=== PATIENT | female | born 1995 | race African-American/Black ===

== ENCOUNTER 2017-11-23 23:42 | Observation (INO) ==
--- NOTE | 2017-11-24 00:34 | Emergency Department Note ---
Disposition Clinical Impression: Suicide attempt by drug ingestion Qualifiers: Encounter type: initial encounter Qualified Code(s): T50.902A - Poisoning by unspecified drugs, medicaments and biological substances, intentional self-harm , initial encounter Disposition: Admitted As Inpatient Condition: Good Time of Disposition: 05:04 Psych HPI - General Chief Complaint: ED Psychiatric Symptoms Stated Complaint: SI/OD Time Seen by Provider: 11/24/17 00:32 Source: patient Nursing Notes Reviewed: Yes Vital Signs Reviewed: Yes - History of Present Illness HPI Narrative: 22 old female presents for ingestion with intent of suicide. Just approximately 4 hours prior to arrival. She took [facility] Head and Cold. 12 tablets. 250 acetaminphen, 250 aspirin, 65 caffeine per rapid release capsule. Patient is bipolar and has been noncompliant with her medications. Patient's and child are bedside. Review systems unobtainable secondary to patient's emotional condition. - Related Data Previous Rx's Medication Instructions Recorded Cephalexin [Keflex] 500 mg PO BID #14 capsule 08/02/17 Phenazopyridine HCl [Pyridium] 200 mg PO TIDAC #9 tab 08/02/17 Allergies Allergy/AdvReac Type Severity Reaction Status Date / Time No Known Allergies Allergy Verified 08/02/17 19:48 All systems ED: reviewed and negative except as stated. Review of Systems: As Per HPI Past Medical History - Past Medical History Medical history: Reports: no medical history Psychiatric history: Reports: anxiety, bipolar, depression - Social History Smoking Status: Never smoker Smokeless Tobacco Status: No Alcohol use: Reports: none Drug use: Reports: none Physical Exam Vital Signs Reviewed General: Patient is alert, oriented, and in acute distress-she is yelling, breathing rapidly, stating she cannot breathe, stating she is having a heart attack. She repeats this is not directly answer questions. Head: atraumatic, normocephalic Eye: normal appearance, no scleral icterus, no conjunctival injection ENT: mucous membranes moist, normal external ear exam Neck: normal inspection, trachea midline, full ROM Chest: normal inspection, symmetric chest rise Respiratory: Good respiratory effort. Bilateral breath sounds are clear without wheezing, crackles, or rhonchi. Cardiovascular: Tachycardic rate and regular rhythm. No clicks, rubs, gallops, or murmors. Normal heart sounds. Abdomen: Bowel sounds present normoactive x-4 quadrants. Abdomen is soft, nondistended, and nontender. No guarding or rebound. Musculoskeletal: Spontaneously moving all extremities. Skin: warm, dry, intact. Neuro: Alert and oriented x4. Sensation light touch intact. Psych: Patient's affect is appropriate for situation. - General Limitations: no limitations General appearance: alert, in no apparent distress Course Course Narrative: EKG dated 11/24/2017 at 00:23 interpreted as sinus tachycardia with rate of 1: 15. MI 170. QTC 460. Normal axis. Nonspecific ST-T changes. No previous EKG for comparison. Patient is medically cleared. Her salicylate level is subtherapeutic and declining. She has calmed substantially with 2 mg IV Ativan. 04:45 Discussed the patient with [facility] nurse. Psychiatrist requests hospitals admission with psychiatric consult. When questioned why, nurse states his psychiatrist wishes further observation given the patient's overdose. Nurse and I discussed the patient's salicylate levels which she indicated was the psychiatrist primary concern. I reiterated that we in the emergency department have medically cleared the patient. We reestablished multiple salicylate levels are subtherapeutic and are trending down. She reiterates at the psychiatrist does not feel comfortable with admission to the psychiatric unit. I requested to speak directly with the psychiatrist. 04:50 [facility] nurse callbacks. She called the psychiatrist back. He does not wish to speak with me or my attending on a physician to physician basis. He stands by his initial recommendation that the patient be admitted to medical floor for continued observation. He did not further clarify or elucidate his rationale for this to the nurse. He will not accept the patient to the psychiatric floor at this time. I discussed the patient with the admitting hospitalist, Dr. Wells. I discussed the patient's presenting condition, her ED course, her subtheraputic and declining salicylate level as well as my conversations with [facility]. He accepts the patient. Vital Signs Temperature 98.1 F 11/23/17 23:46 Pulse Rate 110 11/23/17 23:46 Respiratory Rate 18 11/23/17 23:46 Blood Pressure 138/92 11/23/17 23:46 O2 Sat by Pulse Oximetry 98 11/23/17 23:46 Temperature 98.1 F 11/23/17 23:46 Pulse Rate 73 11/24/17 03:59 Respiratory Rate 15 11/24/17 03:59 Blood Pressure 120/74 11/24/17 03:59 O2 Sat by Pulse Oximetry 100 11/24/17 03:59 Oxygen Delivery Oxygen Delivery Room Air Psych - Lab Data Result diagrams: 11/24/17 00:34 11/24/17 00:34 Lab Results 11/24/17 11/24/17 11/24/17 Range/Units 00:31 00:34 00:34 WBC 9.4 (4.3-11.1) K/mcL RBC 5.14 H (3.82-4.97) M/mcL Hgb 13.4 (11.5-15.4) g/dL Hct 41.2 (35.3-44.9) % MCV 80.2 L (83.0-100.0) fL MCH 26.1 L (28.0-33.3) pg MCHC 32.5 (31.6-35.5) g/dL RDW 13.1 (11.5-14.5) % Plt Count 302 (140-400) K/mcL MPV 10.7 (9.4-12.4) fL Immature Gran % 0.2 (0-4) % Seg Neutrophils % 74.8 % Lymphocytes % 19.6 % Monocytes % 5.1 % Eosinophils % 0.1 % Basophils % 0.2 % Neutrophils # 7.0 (1.6-8.9) K/mcL Lymphocytes # 1.8 (0.6-4.6) K/mcL Monocytes # 0.5 (0.0-1.3) K/mcL Eosinophils # 0.0 (0.0-0.6) K/mcL Basophils # 0.0 (0.0-0.2) K/mcL Sodium 137 (136-145) mEq/L Potassium 3.1 L (3.5-5.1) mEq/L Chloride 104 (98-107) mEq/L Carbon Dioxide 17 L (23-29) mEq/L BUN 8 (6-20) mg/dL Creatinine 0.76 (0.60-1.20) mg/dL Est GFR ( Amer) > 60 (> 60) Est GFR (Non-Af Amer) > 60 (> 60) BUN/Creatinine Ratio 11 (6-26) Glucose 138 H (70-105) mg/dL Calculated Osmolality 285 (280-300) Calcium 9.9 (8.6-10.3) mg/dL Urine Color (Yellow) Urine Clarity (Clear) Urine pH (5.0-8.0) pH Units Ur Specific [place] (1.010-1.025) Urine Protein (Neg-Trace) mg/dL Urine Glucose (UA) (Normal) mg/dL Urine Ketones (Negative) mg/dL Urine Blood (Negative) Urine Nitrite (Negative) Urine Bilirubin (Negative) Urine Urobilinogen (Normal) mg/dL Ur Leukocyte Esterase (Negative) Urine Microscopic RBC (0-3) per hpf Urine Microscopic WBC (0-3) per hpf Ur Squamous Epith Cells (None-Few) per lpf Urine Bacteria (None-Few) per hpf Hyaline Casts (None-Few) per lpf Urine Mucus (Few) Urine Test (Negative) Salicylates 14.6 L 14.8 L (15.0-30.0) mg/dL Urine Opiates Screen (Opwmly=152) ng/mL Acetaminophen 18 (10-20) mcg/mL Ur Barbiturates Screen (Sacdmj=349) ng/mL Ur Phencyclidine Scrn (Cutoff=25) ng/mL Ur Amphetamines Screen (Kbqrrz=6545) ng/mL U Benzodiazepines Scrn (Datwft=109) ng/mL Urine Cocaine Screen (Cutoff= 300) ng/mL U Marijuana (THC) Screen (Cutoff = 50) ng/mL Ur Drug Screen Interp Ethyl Alcohol < 10 (Less than 10) mg/dL 11/24/17 11/24/17 11/24/17 Range/Units 01:07 01:07 01:07 WBC (4.3-11.1) K/mcL RBC (3.82-4.97) M/mcL Hgb (11.5-15.4) g/dL Hct (35.3-44.9) % MCV (83.0-100.0) fL MCH (28.0-33.3) pg MCHC (31.6-35.5) g/dL RDW (11.5-14.5) % Plt Count (140-400) K/mcL MPV (9.4-12.4) fL Immature Gran % (0-4) % Seg Neutrophils % % Lymphocytes % % Monocytes % % Eosinophils % % Basophils % % Neutrophils # (1.6-8.9) K/mcL Lymphocytes # (0.6-4.6) K/mcL Monocytes # (0.0-1.3) K/mcL Eosinophils # (0.0-0.6) K/mcL Basophils # (0.0-0.2) K/mcL Sodium (136-145) mEq/L Potassium (3.5-5.1) mEq/L Chloride (98-107) mEq/L Carbon Dioxide (23-29) mEq/L BUN (6-20) mg/dL Creatinine (0.60-1.20) mg/dL Est GFR ( Amer) (> 60) Est GFR (Non-Af Amer) (> 60) BUN/Creatinine Ratio (6-26) Glucose (70-105) mg/dL Calculated Osmolality (280-300) Calcium (8.6-10.3) mg/dL Urine Color Yellow (Yellow) Urine Clarity Clear (Clear) Urine pH 6.0 (5.0-8.0) pH Units Ur Specific [place] 1.025 (1.010-1.025) Urine Protein 30 H (Neg-Trace) mg/dL Urine Glucose (UA) Normal (Normal) mg/dL Urine Ketones 40 H (Negative) mg/dL Urine Blood Negative (Negative) Urine Nitrite Negative (Negative) Urine Bilirubin Negative (Negative) Urine Urobilinogen Normal (Normal) mg/dL Ur Leukocyte Esterase Negative (Negative) Urine Microscopic RBC 0-3 (0-3) per hpf Urine Microscopic WBC 0-3 (0-3) per hpf Ur Squamous Epith Cells Few (None-Few) per lpf Urine Bacteria Few (None-Few) per hpf Hyaline Casts None Seen (None-Few) per lpf Urine Mucus Few (Few) Urine Test Negative (Negative) Salicylates (15.0-30.0) mg/dL Urine Opiates Screen Negative (Trrnuv=287) ng/mL Acetaminophen (10-20) mcg/mL Ur Barbiturates Screen Negative (Ygjrkf=244) ng/mL Ur Phencyclidine Scrn Negative (Cutoff=25) ng/mL Ur Amphetamines Screen Negative (Ogahjh=7280) ng/mL U Benzodiazepines Scrn Negative (Qnzlys=947) ng/mL Urine Cocaine Screen Negative (Cutoff= 300) ng/mL U Marijuana (THC) Screen Negative (Cutoff = 50) ng/mL Ur Drug Screen Interp See Below Ethyl Alcohol (Less than 10) mg/dL 11/24/17 Range/Units 03:18 WBC (4.3-11.1) K/mcL RBC (3.82-4.97) M/mcL Hgb (11.5-15.4) g/dL Hct (35.3-44.9) % MCV (83.0-100.0) fL MCH (28.0-33.3) pg MCHC (31.6-35.5) g/dL RDW (11.5-14.5) % Plt Count (140-400) K/mcL MPV (9.4-12.4) fL Immature Gran % (0-4) % Seg Neutrophils % % Lymphocytes % % Monocytes % % Eosinophils % % Basophils % % Neutrophils # (1.6-8.9) K/mcL Lymphocytes # (0.6-4.6) K/mcL Monocytes # (0.0-1.3) K/mcL Eosinophils # (0.0-0.6) K/mcL Basophils # (0.0-0.2) K/mcL Sodium (136-145) mEq/L Potassium (3.5-5.1) mEq/L Chloride (98-107) mEq/L Carbon Dioxide (23-29) mEq/L BUN (6-20) mg/dL Creatinine (0.60-1.20) mg/dL Est GFR ( Amer) (> 60) Est GFR (Non-Af Amer) (> 60) BUN/Creatinine Ratio (6-26) Glucose (70-105) mg/dL Calculated Osmolality (280-300) Calcium (8.6-10.3) mg/dL Urine Color (Yellow) Urine Clarity (Clear) Urine pH (5.0-8.0) pH Units Ur Specific [place] (1.010-1.025) Urine Protein (Neg-Trace) mg/dL Urine Glucose (UA) (Normal) mg/dL Urine Ketones (Negative) mg/dL Urine Blood (Negative) Urine Nitrite (Negative) Urine Bilirubin (Negative) Urine Urobilinogen (Normal) mg/dL Ur Leukocyte Esterase (Negative) Urine Microscopic RBC (0-3) per hpf Urine Microscopic WBC (0-3) per hpf Ur Squamous Epith Cells (None-Few) per lpf Urine Bacteria (None-Few) per hpf Hyaline Casts (None-Few) per lpf Urine Mucus (Few) Urine Test (Negative) Salicylates 12.2 L (15.0-30.0) mg/dL Urine Opiates Screen (Nwvnss=922) ng/mL Acetaminophen (10-20) mcg/mL Ur Barbiturates Screen (Wlnakl=789) ng/mL Ur Phencyclidine Scrn (Cutoff=25) ng/mL Ur Amphetamines Screen (Tcblae=2347) ng/mL U Benzodiazepines Scrn (Mvxljq=411) ng/mL Urine Cocaine Screen (Cutoff= 300) ng/mL U Marijuana (THC) Screen (Cutoff = 50) ng/mL Ur Drug Screen Interp Ethyl Alcohol (Less than 10) mg/dL Psychiatric Medical Clearance - Medical Clearance Checklist Medical History: No Social History Section defined Current Vitals: Last Vital Signs Temp 98.1 F 11/23/17 23:46 Pulse 73 11/24/17 03:59 Resp 15 11/24/17 03:59 BP 120/74 11/24/17 03:59 Pulse Ox 100 11/24/17 03:59 Psychiatric Lab Panel: Drug Levels and Toxicity 11/24/17 11/24/17 00:34 01:07 Urine Opiates Screen Negative Acetaminophen 18 Ur Barbiturates Screen Negative Ur Phencyclidine Scrn Negative Ur Amphetamines Screen Negative U Benzodiazepines Scrn Negative Urine Cocaine Screen Negative U Marijuana (THC) Screen Negative Ethyl Alcohol < 10 Abnormal Labs: Abnormal lab results RBC 5.14 M/mcL (3.82-4.97) H 11/24/17 00:34 MCV 80.2 fL (83.0-100.0) L 11/24/17 00:34 MCH 26.1 pg (28.0-33.3) L 11/24/17 00:34 Potassium 3.1 mEq/L (3.5-5.1) L 11/24/17 00:34 Carbon Dioxide 17 mEq/L (23-29) L 11/24/17 00:34 Glucose 138 mg/dL (70-105) H 11/24/17 00:34 Urine Protein 30 mg/dL (Neg-Trace) H 11/24/17 01:07 Urine Ketones 40 mg/dL (Negative) H 11/24/17 01:07 Salicylates 12.2 mg/dL (15.0-30.0) L 11/24/17 03:18
[2017-11-24 00:55] LABS: Basophils % 0.2 %; Eosinophils % 0.1 %; Hematocrit 41.2 % (35.3-44.9); Hemoglobin 13.4 g/dL (11.5-15.4); Immature Granulocytes % 0.2 % (0-4); Lymphocytes # 1.8 K/mcL (0.6-4.6); Lymphocytes % 19.6 %; Mean Corpuscular HGB Conc 32.5 g/dL (31.6-35.5); Mean Corpuscular Hemoglobin 26.1 pg (28.0-33.3); Mean Corpuscular Volume 80.2 fL (83.0-100.0); Mean Platelet Volume 10.7 fL (9.4-12.4); Monocytes # 0.5 K/mcL (0.0-1.3); Monocytes % 5.1 %; Platelet Count 302 K/mcL (140-400); Red Blood Count 5.14 M/mcL (3.82-4.97); Red Cell Distribution Width 13.1 % (11.5-14.5); Segmented Neutrophils % 74.8 %
[2017-11-24] MEDS ORDERED: *HR* LORazepam 2 MG/ML VIAL IVP ONE (01:07)
[2017-11-24 01:17] LABS: Acetaminophen 18 mcg/mL (10-20); BUN/Creatinine Ratio 11 (6-26); Blood Urea Nitrogen 8 mg/dL (6-20); Calcium 9.9 mg/dL (8.6-10.3); Carbon Dioxide 17 mEq/L (23-29); Chloride 104 mEq/L (98-107); Ethanol < 10 mg/dL (Less than 10); Glucose 138 mg/dL (70-105); Osmolality,Calculated 285 (280-300); Potassium 3.1 mEq/L (3.5-5.1); Salicylate 14.8 mg/dL (15.0-30.0); Sodium 137 mEq/L (136-145); eGFR For Non-African Americans > 60 (> 60)
[2017-11-24 01:27] LABS: Bilirubin,Urine Negative (Negative); Blood,Urine Negative (Negative); Clarity,Urine Clear (Clear); Color,Urine Yellow (Yellow); Glucose,Urine (UA) Normal (Normal); Ketones,Urine 40 mg/dL (Negative); Leukocyte Esterase,Urine Negative (Negative); Nitrite,Urine Negative (Negative); Protein,Urine 30 mg/dL (Neg-Trace); Specific Gravity,Urine 1.025 (1.010-1.025); Urobilinogen,Urine Normal (Normal)
[2017-11-24 01:31] LABS: Amphetamine Screen,Urine Negative ng/mL (Cutoff=1000); Barbiturate Screen,Urine Negative ng/mL (Cutoff=200); Benzodiazepines Screen,Urine Negative ng/mL (Cutoff=200); Cannabinoid Screen,Urine Negative ng/mL (Cutoff = 50); Cocaine Screen,Urine Negative ng/mL (Cutoff= 300); Opiate Screen,Urine Negative ng/mL (Cutoff=300); Phencyclidine Screen,Urine Negative ng/mL (Cutoff=25)
[2017-11-24 01:43] LABS: Bacteria,Urine Few per hpf (None-Few); Hyaline Casts,Urine None Seen per lpf (None-Few); Mucus,Urine Few (Few); RBC,Urine 0-3 per hpf (0-3); Squamous Epithelial Cell,Urine Few per lpf (None-Few); WBC,Urine 0-3 per hpf (0-3)
[2017-11-24] MEDS ORDERED: Ondansetron 4 MG/2 ML VIAL IVP ONE (02:52)
[2017-11-24] MEDS ORDERED: 0.9 % Sodium Chloride 1,000 ML IVC ONE (02:52)
[2017-11-24] MEDS ORDERED: OLANZapine 5 MG TAB.RAPDIS PO STA ×2 (05:01→05:02)
[2017-11-24] MEDS ORDERED: OLANZapine 10 MG VIAL IM ONE (05:11)
--- NOTE | 2017-11-24 05:24 | Emergency Department Note ---
Disposition Clinical Impression: Suicide attempt by drug ingestion Qualifiers: Encounter type: initial encounter Qualified Code(s): T50.902A - Poisoning by unspecified drugs, medicaments and biological substances, intentional self-harm , initial encounter Disposition: Admitted As Inpatient Condition: Good General Adult HPI - General Chief complaint: ED Psychiatric Symptoms Stated complaint: SI/OD Time Seen by Provider: 11/24/17 00:32 Source: patient Limitations: no limitations Nursing Notes Reviewed: Yes Vital Signs Reviewed: Yes - History of Present Illness Pain Scale: 10 - Related Data Previous Rx's Medication Instructions Recorded Cephalexin [Keflex] 500 mg PO BID #14 capsule 08/02/17 Phenazopyridine HCl [Pyridium] 200 mg PO TIDAC #9 tab 08/02/17 Allergies Allergy/AdvReac Type Severity Reaction Status Date / Time No Known Allergies Allergy Verified 08/02/17 19:48 Past Medical History - Past Medical History Medical history: Reports: no medical history Psychiatric history: Reports: anxiety, bipolar, depression - Social History Smoking Status: Never smoker Smokeless Tobacco Status: No Alcohol use: Reports: none Drug use: Reports: none Physical Exam - General Limitations: no limitations General appearance: alert, in no apparent distress Course Vital Signs Temperature 98.1 F 11/23/17 23:46 Pulse Rate 110 11/23/17 23:46 Respiratory Rate 18 11/23/17 23:46 Blood Pressure 138/92 11/23/17 23:46 O2 Sat by Pulse Oximetry 98 11/23/17 23:46 Temperature 98.1 F 11/23/17 23:46 Pulse Rate 73 11/24/17 03:59 Respiratory Rate 15 11/24/17 03:59 Blood Pressure 120/74 11/24/17 03:59 O2 Sat by Pulse Oximetry 100 11/24/17 03:59 Oxygen Delivery Oxygen Delivery Room Air Medical Decision Making - Lab Data Result diagrams: 11/24/17 00:34 11/24/17 00:34 Lab Results 11/24/17 11/24/17 11/24/17 Range/Units 00:31 00:34 00:34 WBC 9.4 (4.3-11.1) K/mcL RBC 5.14 H (3.82-4.97) M/mcL Hgb 13.4 (11.5-15.4) g/dL Hct 41.2 (35.3-44.9) % MCV 80.2 L (83.0-100.0) fL MCH 26.1 L (28.0-33.3) pg MCHC 32.5 (31.6-35.5) g/dL RDW 13.1 (11.5-14.5) % Plt Count 302 (140-400) K/mcL MPV 10.7 (9.4-12.4) fL Immature Gran % 0.2 (0-4) % Seg Neutrophils % 74.8 % Lymphocytes % 19.6 % Monocytes % 5.1 % Eosinophils % 0.1 % Basophils % 0.2 % Neutrophils # 7.0 (1.6-8.9) K/mcL Lymphocytes # 1.8 (0.6-4.6) K/mcL Monocytes # 0.5 (0.0-1.3) K/mcL Eosinophils # 0.0 (0.0-0.6) K/mcL Basophils # 0.0 (0.0-0.2) K/mcL Sodium 137 (136-145) mEq/L Potassium 3.1 L (3.5-5.1) mEq/L Chloride 104 (98-107) mEq/L Carbon Dioxide 17 L (23-29) mEq/L BUN 8 (6-20) mg/dL Creatinine 0.76 (0.60-1.20) mg/dL Est GFR ( Amer) > 60 (> 60) Est GFR (Non-Af Amer) > 60 (> 60) BUN/Creatinine Ratio 11 (6-26) Glucose 138 H (70-105) mg/dL Calculated Osmolality 285 (280-300) Calcium 9.9 (8.6-10.3) mg/dL Urine Color (Yellow) Urine Clarity (Clear) Urine pH (5.0-8.0) pH Units Ur Specific [place] (1.010-1.025) Urine Protein (Neg-Trace) mg/dL Urine Glucose (UA) (Normal) mg/dL Urine Ketones (Negative) mg/dL Urine Blood (Negative) Urine Nitrite (Negative) Urine Bilirubin (Negative) Urine Urobilinogen (Normal) mg/dL Ur Leukocyte Esterase (Negative) Urine Microscopic RBC (0-3) per hpf Urine Microscopic WBC (0-3) per hpf Ur Squamous Epith Cells (None-Few) per lpf Urine Bacteria (None-Few) per hpf Hyaline Casts (None-Few) per lpf Urine Mucus (Few) Urine Test (Negative) Salicylates 14.6 L 14.8 L (15.0-30.0) mg/dL Urine Opiates Screen (Ghfhwu=418) ng/mL Acetaminophen 18 (10-20) mcg/mL Ur Barbiturates Screen (Gozorh=851) ng/mL Ur Phencyclidine Scrn (Cutoff=25) ng/mL Ur Amphetamines Screen (Idzfjk=2475) ng/mL U Benzodiazepines Scrn (Whjtyt=998) ng/mL Urine Cocaine Screen (Cutoff= 300) ng/mL U Marijuana (THC) Screen (Cutoff = 50) ng/mL Ur Drug Screen Interp Ethyl Alcohol < 10 (Less than 10) mg/dL 11/24/17 11/24/17 11/24/17 Range/Units 01:07 01:07 01:07 WBC (4.3-11.1) K/mcL RBC (3.82-4.97) M/mcL Hgb (11.5-15.4) g/dL Hct (35.3-44.9) % MCV (83.0-100.0) fL MCH (28.0-33.3) pg MCHC (31.6-35.5) g/dL RDW (11.5-14.5) % Plt Count (140-400) K/mcL MPV (9.4-12.4) fL Immature Gran % (0-4) % Seg Neutrophils % % Lymphocytes % % Monocytes % % Eosinophils % % Basophils % % Neutrophils # (1.6-8.9) K/mcL Lymphocytes # (0.6-4.6) K/mcL Monocytes # (0.0-1.3) K/mcL Eosinophils # (0.0-0.6) K/mcL Basophils # (0.0-0.2) K/mcL Sodium (136-145) mEq/L Potassium (3.5-5.1) mEq/L Chloride (98-107) mEq/L Carbon Dioxide (23-29) mEq/L BUN (6-20) mg/dL Creatinine (0.60-1.20) mg/dL Est GFR ( Amer) (> 60) Est GFR (Non-Af Amer) (> 60) BUN/Creatinine Ratio (6-26) Glucose (70-105) mg/dL Calculated Osmolality (280-300) Calcium (8.6-10.3) mg/dL Urine Color Yellow (Yellow) Urine Clarity Clear (Clear) Urine pH 6.0 (5.0-8.0) pH Units Ur Specific [place] 1.025 (1.010-1.025) Urine Protein 30 H (Neg-Trace) mg/dL Urine Glucose (UA) Normal (Normal) mg/dL Urine Ketones 40 H (Negative) mg/dL Urine Blood Negative (Negative) Urine Nitrite Negative (Negative) Urine Bilirubin Negative (Negative) Urine Urobilinogen Normal (Normal) mg/dL Ur Leukocyte Esterase Negative (Negative) Urine Microscopic RBC 0-3 (0-3) per hpf Urine Microscopic WBC 0-3 (0-3) per hpf Ur Squamous Epith Cells Few (None-Few) per lpf Urine Bacteria Few (None-Few) per hpf Hyaline Casts None Seen (None-Few) per lpf Urine Mucus Few (Few) Urine Test Negative (Negative) Salicylates (15.0-30.0) mg/dL Urine Opiates Screen Negative (Sovutk=780) ng/mL Acetaminophen (10-20) mcg/mL Ur Barbiturates Screen Negative (Bdcxwz=349) ng/mL Ur Phencyclidine Scrn Negative (Cutoff=25) ng/mL Ur Amphetamines Screen Negative (Eiasbu=6057) ng/mL U Benzodiazepines Scrn Negative (Qwtzhe=803) ng/mL Urine Cocaine Screen Negative (Cutoff= 300) ng/mL U Marijuana (THC) Screen Negative (Cutoff = 50) ng/mL Ur Drug Screen Interp See Below Ethyl Alcohol (Less than 10) mg/dL 11/24/17 Range/Units 03:18 WBC (4.3-11.1) K/mcL RBC (3.82-4.97) M/mcL Hgb (11.5-15.4) g/dL Hct (35.3-44.9) % MCV (83.0-100.0) fL MCH (28.0-33.3) pg MCHC (31.6-35.5) g/dL RDW (11.5-14.5) % Plt Count (140-400) K/mcL MPV (9.4-12.4) fL Immature Gran % (0-4) % Seg Neutrophils % % Lymphocytes % % Monocytes % % Eosinophils % % Basophils % % Neutrophils # (1.6-8.9) K/mcL Lymphocytes # (0.6-4.6) K/mcL Monocytes # (0.0-1.3) K/mcL Eosinophils # (0.0-0.6) K/mcL Basophils # (0.0-0.2) K/mcL Sodium (136-145) mEq/L Potassium (3.5-5.1) mEq/L Chloride (98-107) mEq/L Carbon Dioxide (23-29) mEq/L BUN (6-20) mg/dL Creatinine (0.60-1.20) mg/dL Est GFR ( Amer) (> 60) Est GFR (Non-Af Amer) (> 60) BUN/Creatinine Ratio (6-26) Glucose (70-105) mg/dL Calculated Osmolality (280-300) Calcium (8.6-10.3) mg/dL Urine Color (Yellow) Urine Clarity (Clear) Urine pH (5.0-8.0) pH Units Ur Specific [place] (1.010-1.025) Urine Protein (Neg-Trace) mg/dL Urine Glucose (UA) (Normal) mg/dL Urine Ketones (Negative) mg/dL Urine Blood (Negative) Urine Nitrite (Negative) Urine Bilirubin (Negative) Urine Urobilinogen (Normal) mg/dL Ur Leukocyte Esterase (Negative) Urine Microscopic RBC (0-3) per hpf Urine Microscopic WBC (0-3) per hpf Ur Squamous Epith Cells (None-Few) per lpf Urine Bacteria (None-Few) per hpf Hyaline Casts (None-Few) per lpf Urine Mucus (Few) Urine Test (Negative) Salicylates 12.2 L (15.0-30.0) mg/dL Urine Opiates Screen (Wrfrcv=332) ng/mL Acetaminophen (10-20) mcg/mL Ur Barbiturates Screen (Mplfgy=358) ng/mL Ur Phencyclidine Scrn (Cutoff=25) ng/mL Ur Amphetamines Screen (Zcytxm=0218) ng/mL U Benzodiazepines Scrn (Ddntra=727) ng/mL Urine Cocaine Screen (Cutoff= 300) ng/mL U Marijuana (THC) Screen (Cutoff = 50) ng/mL Ur Drug Screen Interp Ethyl Alcohol (Less than 10) mg/dL Attestation Statement - Attestation Attestation: I, Sean Moe MD, personally evaluated this patient and discussed their management with the resident physician. I reviewed the resident's note and agree with the documented findings, medical decision making, and plan of care. 22-year-old female presents to the emergency department several hours after an intentional overdose as a suicide attempt. Patient took approximately 12 tablets of an [id number] medication containing acetaminophen, aspirin, and caffeine. Patient has had multiple episodes of vomiting since ingesting the medication. She complains of severe nausea and some epigastric abdominal pain. There is been no melena, hematemesis, or hematochezia. No fever. No chest pain or shortness of breath. On examination patient is a well-developed well-nourished female in no acute distress. She is alert and oriented 3. There is no diaphoresis. Breath sounds are clear and equal bilaterally. Heart regular rate and rhythm. Abdomen is soft with normal bowel sounds. Mild to moderate epigastric tenderness with no guarding or rebound tenderness. Labs reviewed. Patient medically cleared for psychiatric evaluation. [address] psychiatry department was consulted and evaluated patient in the emergency department. Although the patient has been medically cleared from our standpoint the psychiatrist refuses to accept the patient for admission to the psychiatric unit and requested patient be admitted medically for observation. The hospitalist, Dr. Wells, was consulted and accepted admission of the patient.
[2017-11-24] MEDS ORDERED: Potassium Chloride Elixir 20 MEQ/15 ML UDC PO ONE ×2 (05:27→09:00)
[2017-11-24] MEDS ORDERED: Ringers Solution, Lactated 1,000 ML IVC SCH (05:30)
[2017-11-24] MEDS ORDERED: Ondansetron 4 MG/2 ML VIAL IVP PRN (05:34)
[2017-11-24] MEDS ORDERED: *HR* Heparin 5,000 UNIT/ML VIAL SQ SCH (06:00)
[2017-11-24 06:19] VITALS: BP 124/80
[2017-11-24] MEDS ORDERED: Isovue-370 500 ML INFUS..BTL IV ONE (08:06)
--- NOTE | 2017-11-24 08:29 | Internal Med History&Physical ---
Date of Encounter: 11/24/17 Time of Encounter: 08:20 Internal Medicine - H&P: HPI Chief complaint: Suiciadal attempt with medication overdose History of present illness: Ms. Rosas is a 22 year old female with no significant pmh presenting with complaints of suicidal attempt in the last 24 hrs. Patient says she took about 12 tablets of an over the counter agent containing aspirin, tylenol anfd caffeine. She declines to state any specific triggers, but says she has been feeling suicidal for a while. She was driven by her to the ER. She has had several episodes of nausea, vomiting, generalized abdominal pain since she took the pills. The pain is described as constant and diffuse. Also complains of right sided musculoskeletal chest pain which is worse with palpation. In the ER, alcohol, salicylate, and acetaminophen levels were drawn which are currently subtherapeutic. She is being admitted to the medical unit for observation prior to possible inpatient psychiatry admission Past Med Surg Social Fam HX - Past Medical History Medical history: no medical history Additional medical history: frequent UTI's Psychiatric history: anxiety, bipolar, depression - Social History Smoking Status: Never smoker Smokeless Tobacco Status: No Alcohol use: none Drug use: none - Family History Father Living Status: Still Living Hx Family Cancer: Yes Internal Medicine - H&P: Meds Cephalexin [Keflex] 500 mg PO BID #14 capsule 08/02/17 [Rx] Phenazopyridine HCl [Pyridium] 200 mg PO TIDAC #9 tab 08/02/17 [Rx] 3 Allergy/AdvReac Type Severity Reaction Status Date / Time No Known Allergies Allergy Verified 08/02/17 19:48 All Systems PM: A 10-system review of systems was performed and is negative for pertinent findings except as documented above in the HPI. - Constitutional Constitutional: fatigue, no chills, no fever(s), no night sweats - EENT Eyes: no change in vision, no discharge, no pain, no photophobia Ears: no ear discharge, no ear pain, no tinnitus Nose, mouth and throat: no dysphagia, no nasal discharge, no neck pain, no sore throat - Cardiovascular Cardiovascular ROS IM: no chest pain, no diaphoresis, no dyspnea, no lightheadedness, no palpitations, no syncope - Respiratory Respiratory: no cough, no dyspnea, no wheezing, no excessive phlegm production - Gastrointestinal Gastrointestinal: abdominal pain, nausea, vomiting, no diarrhea, no hematemesis , no hematochezia, no melena - Genitourinary Genitourinary: no change in urinary stream, no dysuria, no flank pain, no hematuria - Musculoskeletal Musculoskeletal ROS IM: no numbness, no tingling - Integumentary Integumentary IM: no rash, no unusual bruising - Neurological Neurological ROS: no confusion, no convulsions, no focal weakness, no numbness, no tingling, no tremor(s) - Hematologic/Lymphatic Hematologic/Lymphatic: no easy bruising - Constitutional Vitals: Temp Pulse Resp BP Pulse Ox 97.7 F 75 18 124/80 99 11/24/17 06:18 11/24/17 06:18 11/24/17 06:18 11/24/17 06:18 11/24/17 06:18 Exam: NAD - Head Head exam: Present: atraumatic, normocephalic - Eye Eye exam: Present: PERRL, conjuntiva pink, sclera anicteric Pupils: Present: PERRL - Neck Neck exam general surgery: Present: supple, trachea midline. Absent: lymphadenopathy - Respiratory Respiratory exam: Present: chest wall tenderness, CTAB. Absent: accessory muscle use, rales, rhonchi, wheezes - Cardiovascular Cardiovascular exam: Present: RRR, +S1, +S2. Absent: diastolic murmur, gallop, rubs, systolic murmur - GI/Abdominal GI/Abdominal exam: Present: normal bowel sounds, soft, tenderness, no peritoneal signs. Absent: distended - Extremities Exam Extremities exam: Present: warm, radial pulses palpable and symmetrical. Absent : calf tenderness, cyanotic, pedal edema - Neurological Exam Neurological exam: Present: CN II-XII intact, oriented X3, no focal deficits. Absent: pronater drift, facial droop, speech deficit - Skin Skin exam: Present: dry, intact Internal Med - H&P Results - Labs CBC & Chem 7: 11/24/17 00:34 11/24/17 00:34 - Impressions ITS Impressions Chest X-Ray 11/24/17 05:32 IMPRESSION: Low lung volumes with bibasilar atelectasis. D/ / Miya De MD / Miya De MD Interpreting Provider: Miya De MD - Assessment and plan (1) Aspirin overdose Current Visit: Yes Status: Acute Assessment and plan: Pt had suicidal ideation and attempted suicide with 12 tablets of over the counter medication containing aspirin, tylenol and caffeine Had nausea and vomiting subsequently Initial salicylate levels were 14.6 and trended down to 12.2. Tylenol levels 18. Will start on IV fluids, repeat labs and obtain ABG, lactic acid and LFTs Initial QTC was 460 which is WNL. Will obtain repeat EKG. Continue supportive care. Pt also complains of ongoing generalized abdominal pain. Will obtain CT abdomen to r/o any acute pathology Renal and poison control contacted and on board Qualifiers: Qualified Code(s): T39.012A - Poisoning by aspirin, intentional self-harm, initial encounter (2) Increased anion gap metabolic acidosis Current Visit: Yes Status: Acute Assessment and plan: Likely secondary to aspirin poisoning. See #1 Follow up ABG, give IV fluids, appreciate renal recs (3) Suicide attempt by drug ingestion Current Visit: Yes Status: Acute Assessment and plan: Supportive care. Psychiatry consulted Qualifiers: Encounter type: initial encounter Qualified Code(s): T50.902A - Poisoning by unspecified drugs, medicaments and biological substances, intentional self- harm, initial encounter (4) Hypokalemia Current Visit: Yes Status: Acute Assessment and plan: Potassium has been replaced (5) DVT prophylaxis Current Visit: Yes Status: Acute Assessment and plan: Heparin sc - Time Spent With Patient Total time spent is greater than 50% in coordination of care (as documented) at patient's floor/unit and/or counseling patient:
[2017-11-24] MEDS ORDERED: Sodium Bicarbonate 150 MEQ in D5% in Water 1,000 ML IVC SCH (09:00)
[2017-11-24 09:06] LABS: Acetaminophen < 10 mcg/mL (10-20); Salicylate 6.4 mg/dL (15.0-30.0)
[2017-11-24 09:08] LABS: Alanine Aminotransferase 10 Units/L (7-52); Albumin 4.9 g/dL (3.5-5.7); Albumin/Globulin Ratio 1.5 (1.1-2.2); Alkaline Phosphatase 59 Units/L (34-104); Aspartate Amino Transferase 17 Units/L (13-39); BUN/Creatinine Ratio 9 (6-26); Bilirubin,Total 0.5 mg/dL (0.3-1.0); Blood Urea Nitrogen 6 mg/dL (6-20); Calcium 9.8 mg/dL (8.6-10.3); Carbon Dioxide 23 mEq/L (23-29); Chloride 105 mEq/L (98-107); Globulin 3.2 g/dL (2.4-3.5); Glucose 124 mg/dL (70-105); Osmolality,Calculated 283 (280-300); Potassium 3.9 mEq/L (3.5-5.1); Sodium 137 mEq/L (136-145); Total Protein 8.1 g/dL (6.4-8.9); eGFR For Non-African Americans > 60 (> 60)
[2017-11-24] MEDS ORDERED: traMADol 50 MG TABLET PO PRN (09:20)
--- NOTE | 2017-11-24 11:22 | Nephrology Consult Note ---
Date of Encounter: 11/24/17 Time of Encounter: 11:10 Assessment and Plan (1) Hypokalemia Current Visit: Yes Status: Acute 40 meq of Potassium ordered. Recheck at 1400. (2) Aspirin overdose Current Visit: Yes Status: Acute Continue HCO3 infusion. Qualifiers: Qualified Code(s): T39.011A - Poisoning by aspirin, accidental (unintentional ), initial encounter History of Present Illness - Reason for Consult Consult date: 11/24/17 hypokalemia - Chief Complaint SI - History of Present Illness Ms. Rosas is a 22 year old female with pmh of bipolar and depression presenting with complaints of suicidal attempt in the last 24 hrs. Patient says she took about 12 tablets of an over the counter agent containing aspirin, tylenol and caffeine. She declines to state any specific triggers, but says she has been feeling suicidal and depressed for awhile. Pt states she takes Vistaril and an Abilify injection at home, but she has been off of it for "some time" due to a missed appointment. She tells me she has a and 2 young sons at home. Her sons are with her at this time. She appears tearful and anxious during the interview. She tells me she does not want to hurt herself at this time. She does have a sitter at bedside. From a renal standpoint, a sodium bicarbonate drip has been started further recommendations for salicylate and acetaminophen overdose. Initial salicylate level was 14.6 and is now 6.4. Initial acetaminophen level was 18 and is now less than 10. Current recommendations include IV bolus and aggressive IV therapy however with levels starting so low and already declining, IV fluid at 100 an hour is sufficient. I have ordered and acetaminophen and salicylate level for in the a.m. Encourage nurse to obtain accurate I and O. Patient reports she is only voided once since she has been here. Ms. Rosas reports she does live at home with her and 2 young sons. She feels safe at home. She does work at a [employer] in [place]. She is concerned she will "lose her job". She has asked for a work excuse, and I instructed her that she can get one at discharge to ensure all dates are covered. Past Med Surg Social Fam HX - Past Medical History Medical history: no medical history Additional medical history: frequent UTI's Psychiatric history: anxiety, bipolar, depression - Social History Smoking Status: Never smoker Smokeless Tobacco Status: No Alcohol use: none Drug use: none - Family History Father Living Status: Still Living Hx Family Cancer: Yes Medications and Allergies Cephalexin [Keflex] 500 mg PO BID #14 capsule 08/02/17 [Rx] Phenazopyridine HCl [Pyridium] 200 mg PO TIDAC #9 tab 08/02/17 [Rx] 3 Allergy/AdvReac Type Severity Reaction Status Date / Time No Known Allergies Allergy Verified 08/02/17 19:48 Review of Systems Constitutional: headache(s), no chills, no fever(s) Nose, mouth and throat: no dizziness Cardiovascular: no dyspnea, no edema Respiratory: no cough Exam - Vital Signs Vital signs: Initial Vital Signs Temp Pulse Resp BP Pulse Ox 98.1 F 110 18 138/92 98 11/23/17 23:46 11/23/17 23:46 11/23/17 23:46 11/23/17 23:46 11/23/17 23:46 Vital Signs - Last 8 Hours Temp Pulse Resp BP Pulse Ox 11/24/17 06:18 97.7 F 75 18 124/80 99 Intake and Output 11/23/17 11/24/17 11/24/17 23:59 07:59 15:59 Other: Meal NPO - General Appearance General appearance: well-developed, well-nourished EENT: ATNC, hearing intact, vision intact Neck: supple Respiratory: clear Cardiology: no edema, normal S1, normal S2 Gastrointestinal: normoactive bowel sounds, no tenderness, no guarding Integumentary: no rash, warm and dry Neurologic: alert and oriented x3 Psychiatric: mood/affect appropriate, cooperative Results - Lab Results 11/24/17 00:34 11/24/17 08:35 Most recent lab results Calcium 9.8 mg/dL (8.6-10.3) 11/24/17 08:35 Consult Discharge Plan - Plan Referrals: NONE,PCP [Primary Care Provider] -
--- NOTE | 2017-11-24 11:52 | Event Note ---
Date of Encounter: 11/24/17 Time of Encounter: 11:50 Repeat labs came back with resolved anion gap metabolic acidosis and hypokalemia resolved. LFTs and EKG also WNL. Patient is medically clear to proceed to inpatient psych
--- NOTE | 2017-11-24 15:01 | Discharge Summary ---
Orders not resulted at time of discharge: Pending orders 11/24/17 14:00 BMP [Basic Metabolic Panel] Routine Magnesium Routine 11/25/17 04:00 Acetaminophen AM 0400 Basic Metabolic Panel AM 0400 Salicylate AM 0400 11/26/17 04:00 CBC [Complete Blood Count] [HEME] AM 0400 Date of Encounter: 11/24/17 Time of Encounter: 15:00 - Discharge Diagnosis (1) Aspirin overdose Priority: Primary Status: Acute Assessment and Plan: 22 year old female with no significant pmh presenting with complaints of suicidal attempt in the last 24 hrs. Patient says she took about 12 tablets of an over the counter agent containing aspirin, tylenol anfd caffeine. She declines to state any specific triggers, but says she has been feeling suicidal for a while and attempted suicide with 12 tablets of over the counter medication containing aspirin, tylenol and caffeine. She had nausea and vomiting subsequently. Initial salicylate levels were 14.6 and trended down to 12.2. Tylenol levels 18. She was started on IV fluids with ringers lactate and renal and poison control were contacted. Repeat labs and salicylate and acetaminophen levels came back WNL. EKG also showed normal QRS and QTc interval. She got one dose of sodium bicarb and was medically cleared for discharge to psych inpatient Qualifiers: Encounter type: initial encounter Qualified Code(s): T39.011A - Poisoning by aspirin, accidental (unintentional), initial encounter (2) Increased anion gap metabolic acidosis Priority: Secondary Status: Acute (3) Suicide attempt by drug ingestion Priority: Primary Status: Acute Qualifiers: Encounter type: initial encounter Qualified Code(s): T50.902A - Poisoning by unspecified drugs, medicaments and biological substances, intentional self- harm, initial encounter (4) Hypokalemia Priority: Primary Status: Acute (5) DVT prophylaxis Priority: Secondary Status: Acute Hospital course: Ms. Rosas is a 22 year old female - Time Spent with Patient Total time spent providing and/or coordinating discharge services: - Discharge Medications Allergies/Adverse Reactions: 3 Allergy/AdvReac Type Severity Reaction Status Date / Time No Known Allergies Allergy Verified 08/02/17 19:48 Date of admission: 11/24/17 05:22 Primary care physician: PCP NONE Consults: 11/24/17 07:33 Consult to Psychiatry [CONS] Routine Consulting Provider: Psychiatry Shanthi Reason consult: Gustavoter/1:1 Other reason and/or additional details: Suidicdal attempt 11/24/17 08:40 Consult to Nephrology [CONS] Routine Consulting Provider: Kidney Shanthi/SELAM/GRETTA/LA NENA Reason for Consult: aspirin overdose, tylenol overdose Call Completed: Yes - Constitutional Vitals: Temp Pulse Resp BP Pulse Ox 97.7 F 75 18 124/80 99 11/24/17 06:18 11/24/17 06:18 11/24/17 06:18 11/24/17 06:18 11/24/17 06:18 Exam: NAD - Head Head exam: Present: atraumatic, normocephalic - Eye Eye exam: Present: PERRL, conjuntiva pink, sclera anicteric Pupils: Present: PERRL - Neck Neck exam general surgery: Present: supple, trachea midline. Absent: lymphadenopathy - Respiratory Respiratory exam: Present: CTAB. Absent: accessory muscle use, rales, rhonchi, wheezes - Cardiovascular Cardiovascular exam: Present: RRR, +S1, +S2. Absent: diastolic murmur, gallop, rubs, systolic murmur - GI/Abdominal GI/Abdominal exam: Present: normal bowel sounds, soft, no peritoneal signs. Absent: distended, tenderness - Extremities Exam Extremities exam: Present: warm, radial pulses palpable and symmetrical. Absent : calf tenderness, cyanotic, pedal edema - Neurological Exam Neurological exam: Present: CN II-XII intact, oriented X3, no focal deficits. Absent: pronater drift, facial droop, speech deficit - Skin Skin exam: Present: dry, intact - Patient Status Disposition: Transfer Psychiatric Hosp Condition: Good - Discharge Instructions Follow Up With: NONE,PCP [Primary Care Provider] -
--- NOTE | 2017-11-24 15:22 | Psychiatry Progress Note ---
Date of Encounter: 11/24/17 Time of Encounter: 14:30 Subjective Interval history: Psychiatric consultation note: 22 years old female admitted to medical service for evaluation of overdose on acetaminophen, salicylate and caffeine. Patient has history of depression and bipolar disorder and has been noncompliant with her medication for the last several months. She is treated was longer acting antipsychotic medication that she missed for the last 3 months. Currently patient is stable and denied any physical complaints admitted to having suicidal ideation. Recommendation: If patient is medically stable admits to behavioral health for further treatment. Thank you for consultation Results - Vital Signs Vital Signs: Temp Pulse Resp BP Pulse Ox 97.7 F 75 18 124/80 99 11/24/17 06:18 11/24/17 06:18 11/24/17 06:18 11/24/17 06:18 11/24/17 06:18 - Drug Levels and Toxicology Drug Levels and Toxicology: Drug Levels and Toxicity 11/24/17 08:35 Acetaminophen < 10 L - Labs Labs: Laboratory Results - last 24 hr 11/24/17 11/24/17 11/24/17 08:35 08:35 08:35 Sodium 137 Potassium 3.9 D Chloride 105 Carbon Dioxide 23 BUN 6 Creatinine 0.68 Est GFR ( Amer) > 60 Est GFR (Non-Af Amer) > 60 BUN/Creatinine Ratio 9 Glucose 124 H Calculated Osmolality 283 Lactic Acid 1.3 Calcium 9.8 Total Bilirubin 0.5 AST 17 ALT 10 Alkaline Phosphatase 59 Serum Total Protein 8.1 Albumin 4.9 Globulin 3.2 Albumin/Globulin Ratio 1.5 Salicylates 6.4 L Acetaminophen < 10 L - Impressions ITS Impressions Chest X-Ray 11/24/17 05:32 IMPRESSION: Low lung volumes with bibasilar atelectasis. D/ / Miya De MD / Miya De MD Interpreting Provider: Miya De MD Consult Discharge Plan - Plan Referrals: NONE,PCP [Primary Care Provider] - Psychiatry Exam - Constitutional Vitals: Temp Pulse Resp BP Pulse Ox 97.7 F 75 18 124/80 99 11/24/17 06:18 11/24/17 06:18 11/24/17 06:18 11/24/17 06:18 11/24/17 06:18
--- NOTE | 2017-11-25 17:23 | Electrocardiograph Report ---
[address] [place] [address] Test Date: 2017-11-24 Pat Name: Yari Rosas Department: 113 Room: 3B32 Gender: F [place]: : 1995 Requested By: Wendy Elabor Order Number: [id number] Reading MD: Viv Choi Measurements Intervals [place] Rate: 67 P: 34 FL: 198 QRS: 53 QRSD: 77 T: 29 QT: 400 QTc: 415 Interpretive Statements SINUS RHYTHM EARLY REPOLARIZATION Electronically Signed On 11-25-2017 17:22:20 EDT by Viv Choi
--- NOTE | 2017-11-25 17:32 | Electrocardiograph Report ---
[place] [address] Test Date: 2017-11-24 Pat Name: Yari Rosas Department: [id number] Room: 3B32 Gender: F Frit Burner: : 1995 Requested By: Dangelo Douglas Order Number: [id number] Reading MD: Viv Choi Measurements Intervals [place] Rate: 115 P: 78 SD: 170 QRS: 69 QRSD: 77 T: 41 QT: 332 QTc: 460 Interpretive Statements Sinus tachycardia RSR' in V1 or V2, probably normal variant Electronically Signed On 11-25-2017 17:30:34 EDT by Viv Choi
== END 2017-11-24 16:40 ==
LOC: 3BNU 23:42 → EMEROOARM 23:42 → 3BNU 11-24 06:13
PROVIDERS: ADMIT Internal Medicine; ATTEND Internal Medicine

== ENCOUNTER 2017-11-24 16:43 | Inpatient (IN) ==
[2017-11-24] MEDS ORDERED: Acetaminophen 325 MG TABLET PO PRN (16:56)
[2017-11-24] MEDS ORDERED: hydrOXYzine pamoate 25 MG CAPSULE PO PRN (16:56)
[2017-11-24] MEDS ORDERED: *HR* LORazepam 1 MG TABLET PO PRN (16:56)
[2017-11-24] MEDS ORDERED: Haloperidol Lactate 5 MG/ML VIAL IM PRN (16:56)
[2017-11-24] MEDS ORDERED: *HR* LORazepam 2 MG/ML VIAL IM PRN (16:56)
[2017-11-24] MEDS ORDERED: traZODone 50 MG TABLET PO PRN (16:56)
[2017-11-24] MEDS ORDERED: MOM Conc 10 ML UD.LIQ PO PRN (16:56)
[2017-11-24] MEDS: Mag Hydrox/Al Hydrox/Simeth 30 ML UDC PO PRN (18:13)
[2017-11-25] MEDS: Mag Hydrox/Al Hydrox/Simeth 30 ML UDC PO PRN (04:46)
--- NOTE | 2017-11-25 12:33 | Psychiatry History & Physical ---
Date of Encounter: 11/25/17 Time of Encounter: 12:00 History of Present Illness Patient Stated Chief Complaint: Suicide attempt by overdose Medicare Admission Attestation: For traditional Medicare patients the provided hospital inpatient services are reasonable and necessary and in the case of services not specified as inpatient -only under 42 CFR 419.22 (n), that they are appropriately provided as inpatient services in accordance 42 CFR 412.3. For Critical Access Hospital the patient may reasonably be expected to be discharged or transferred to a hospital within 96 hours after admission to the Critical Access Hospital. Admitted From: Intrahospital Transfer (3B) History of Present Illness: Ms. Rosas is a 22 year old female admitted to [facility] from the medical service after medical stabilization. Patient presented to the hospital after an overdose on acetaminophen, salicylate and caffeine combination tablets in a suicide attempt. Patient does not elaborate on any specific stressors but she admits to noncompliance with her medication for the past several months and not attending follow-up appointments. Patient was seen on the medical service in a consultation and was transferred after medical clearance. Patient reports having long history of psychiatric treatment for depression and anxiety and bipolar. She has been seen at [facility] for counseling and medication management with the past 5 years and prior to that she was in residential treatment for 7 years. Patient reports having previous overdoses and psychiatric admissions. She was maintained on long-acting antipsychotics that she missed for the past 3 months. 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 She denies using any drugs or alcohol and she denies any legal history. Past Med Surg Social Fam HX - Past Medical History Medical history: no medical history - Past Psychiatric History Psychiatric history: Reports: anxiety, bipolar, depression, prior suicide attempt, previous psychiatric hospitalization - Social History Smoking Status: Never smoker Smokeless Tobacco Status: No Alcohol use: none Drug use: none - Family History Father History Unknown: Yes Living Status: Still Living Hx Family Cancer: Yes Medications & Allergies 3 Allergy/AdvReac Type Severity Reaction Status Date / Time No Known Allergies Allergy Verified 08/02/17 19:48 Review of Systems Psychiatric: Reports: depression, suicidal ideation Exam - HEENT Head exam IM: Present: atraumatic Eye exam IM: Present: EOMI, normal appearance, PERRL ENT exam IM: Present: normal exam - Neurological Neurological exam: Present: CN II-XII intact - Respiratory Respiratory exam IM: Present: CTAB - GI/Abdominal GI/Abdominal exam IM: Present: normal bowel sounds, soft. Absent: tenderness - Extremities Extremities exam IM: Present: full ROM - Skin Skin exam IM: Present: dry, warm - Constitutional Vitals: Temp Pulse Resp BP 98.2 F 73 16 111/75 11/25/17 09:00 11/25/17 09:00 11/25/17 09:00 11/25/17 09:00 General appearance: age & developmentally appropriate, well-groomed, well- nourished, obese - Musculoskeletal Gait: normal Station: relaxed Strength & Tone: normal for patient - Psychiatric Patient Orientation: Yes Person, Yes Time, Yes Place Level of alertness: Alert Behavior: calm, cooperative Psychomotor activity: Normal Eye Contact: Maintains Eye Contact Mood Description: Euthymic/stable Affect description: congruent with mood, full range Speech Volume: Normal Speech pattern: normal rate, normal rhythm, normal tone, fluent, spontaneous Language & Vocabulary: consistent with education Thought Process: Linear, Goal Oriented Thought Content: Yes Suicidal ideation, No Homicidal ideation, No Overt delusions Perceptual Disturbances: No Auditory hallucinations, No Visual hallucinations Attention Span Ability: Capable of Focused Attention Memory Description: Grossly Intact Patient Reliability: Reliable Historian Fund of knowledge: Yes abstraction ability, Yes average, Yes aware of current events Intelligence Estimate: Average Judgment: Limited Insight: Partial Assessment and Plan (1) Suicide attempt by drug ingestion Current visit: No Status: Acute Plan: Admit inpatient for safety and stabilization, Close observation, Suicide Precautions per unit protocol, Encourage participation in unit milieu, Group Therapy, Monitor sleep, Monitor appetite Additional Plan: We will request records from [facility] regarding patient medication and treatment We will start patient on Abilify 5 mg, mirtazapine 15 mg at bedtime. Risks, benefits, side effects, alternatives discussed w/pt: Yes Patient agreeable to treatment: Yes Estimated Length of Stay (Days): 3 Qualifiers: Encounter type: subsequent encounter Qualified Code(s): T50.902D - Poisoning by unspecified drugs, medicaments and biological substances, intentional self-harm, subsequent encounter
[2017-11-25] MEDS ORDERED: Mirtazapine 15 MG TABLET PO SCH (21:00)
[2017-11-25] MEDS ORDERED: ARIPiprazole 5 MG TABLET PO SCH (21:00)
--- NOTE | 2017-11-26 10:28 | Discharge Summary ---
Date of Encounter: 11/26/17 Time of Encounter: 10:25 Diagnosis - Discharge Diagnosis (1) Suicide attempt by drug ingestion Status: Acute Qualifiers: Encounter type: subsequent encounter Qualified Code(s): T50.902D - Poisoning by unspecified drugs, medicaments and biological substances, intentional self-harm, subsequent encounter Medications - Discharge Medications Prescriptions: ARIPiprazole [Abilify] 5 mg PO HS #30 tablet Mirtazapine [Remeron] 15 mg PO HS #30 tablet ARIPiprazole [Abilify] 5 mg PO HS #30 tablet 11/26/17 [Rx] Mirtazapine [Remeron] 15 mg PO HS #30 tablet 11/26/17 [Rx] 3 Allergy/AdvReac Type Severity Reaction Status Date / Time No Known Allergies Allergy Verified 08/02/17 19:48 Provider Date of admission: 11/24/17 16:43 Primary care physician: PCP NONE Discharging clinician: Clement Reis Psychiatry Exam - Constitutional Vitals: Temp Pulse Resp BP 98.3 F 74 16 114/73 11/25/17 20:10 11/25/17 20:10 11/25/17 20:10 11/25/17 20:10 General appearance: obese - Musculoskeletal Gait: normal Station: relaxed Strength & Tone: normal for patient - Psychiatric Patient Orientation: Yes Person, Yes Time, Yes Place Level of alertness: Alert Behavior: calm, cooperative Psychomotor activity: Normal Eye Contact: Maintains Eye Contact Mood Description: Euthymic/stable Affect description: congruent with mood, full range Speech Volume: Normal Speech pattern: normal rate, normal rhythm, normal tone, fluent, spontaneous Language & Vocabulary: consistent with education Thought Process: Linear, Goal Oriented Thought Content: No Suicidal ideation, No Homicidal ideation, No Overt delusions Perceptual Disturbances: No Auditory hallucinations, No Visual hallucinations Attention Span Ability: Capable of Focused Attention Memory Description: Grossly Intact Patient Reliability: Reliable Historian Fund of knowledge: Yes abstraction ability, Yes aware of current events Intelligence Estimate: Average Judgment: Limited Insight: Partial Hospital Course Hospital course: Ms. Rosas is a 22 year old female admitted from the medical service for suicide attempt by overdose on medication. For details of admission please see H&P On the unit patient was started on mirtazapine and Abilify in addition to when necessary medications, she participated in group activities, she denied suicidal ideation. She is medication compliant. Reported good night sleep. Discharge planning was completed by social work. On discharge patient is medically stable, nonsuicidal and future oriented. She is discharged in stable condition. She is looking forward to start a new job. - Time Spent with Patient Total time spent providing and/or coordinating discharge services: Less than 30 minutes Assessment and Plan - Patient/Caregiver Discharge Instructions Activity: resume usual activities as tolerated Diet: regular diet - Follow up Plan Follow up with: Angeli Bazan [Outside] - 12/04/17 10:30 am (The above appointment is with Micky Suh for outpatient mental health counseling services. Please bring your insurance card and photo ID to this apointment.) [facility] [Outside] - 12/01/17 12:40 pm (The above appointment is with Monica Velasquez for outpatient psychiatric assessment and medication management services. The office is located at [address] [place] [address]. Records may be faxed to [phone] attention Monica Velasquez.) Functional capacity at discharge: independent ambulation Overall status at discharge: Stable Disposition: Home, Self-Care Quality - Multiple Antipsychotics Patient discharged on 2 or more antipsychotic medications: No Procedures - Procedures Procedures: Medication Management, Crisis Stabilization, Supportive Therapy, Group Therapy, Psychoeducational Therapy
[2017-11-26 10:47] VITALS: BP 121/78
== END 2017-11-26 12:16 | disposition home or self-care (01) | DRG 862 ==
LOC: 1ANU 16:43
PROVIDERS: ADMIT Psychiatry & Neurology Psychiatry; ATTEND Psychiatry & Neurology Psychiatry